=== PATIENT | female | born 1945 | race Caucasian/White ===

== ENCOUNTER 2016-11-04 09:39 | Inpatient (IN) | payer MEDICARE, MEDICAID ==
[~2016-11-04] VITALS: Ht 152.4 cm; Wt 54.9 kg
[~2016-11-04 09:39] MED LIST: ADVAIR DISK2 IN; ALBUTEROL S2.5 MG/.5 IN; ALBUTEROL SUL0.083 % IN; ALBUTEROL2.5 MG/3 M IN; AMOXICILLIN500 MG PO; AVELOX400 MG OR; LORTAB 5 OR; LORTAB 5/3255 MG PO; MEDDOSEPAK PO; MOTRIN800 MG OR; MULTIVITAMIN OR; NO CURRENT MEDS; NO MEDS; ULTRAM50 M1 PO; [UNRECOGNIZED DRUG - OTHER]; [UNRECOGNIZED DRUG - REMARK]; [UNRECOGNIZED DRUG - REMARK]
[2016-11-04] MEDS ORDERED: [UNRECOGNIZED DRUG - REMARK] PO (10:05)
[2016-11-04 10:19] LABS: HEMOGLOBIN 15.3 g/dl (12.0-16.0); IMMATURE GRANULOCYTES 0.2 % (0.0-1.0); MEAN CELL VOLUME 82.6 fL CALC (80.0-100.0); MEAN CORPUSCULAR HGB 25.3 pG CALC (26.0-32.0); MEAN CORPUSCULAR HGB CONC 30.6 g/L CALC (32.0-36.0); NEUT# 2.54 thou/uL (2.00-7.15); RED BLOOD COUNT 6.05 mill/uL (4.20-5.60); RED CELL DISTRI WIDTH 21.8 % (11.5-15.5)
[2016-11-04 10:31] LABS: ALBUMIN 3.6 g/dL (3.2-5.0); ALKALINE PHOSPHATASE 80 u/l (38-126); ANION GAP 15 (6-22 (CALC)); BILIRUBIN, TOTAL 1.1 mg/dL (0.0-1.4); BUN 11 mg/dL (8-23); BUN/CREATININE RATIO 17 (12-20 (CALC)); CALCIUM 8.7 mg/dL (8.4-10.2); CARBON DIOXIDE 26 mmol/l (22-30); CHLORIDE 97 mmol/l (95-108); CREATININE 0.6 mg/dL (0.5-1.0); GFR > 60 ML/MIN (>=60 (CALC)); GFR FOR AFR.AMER. > 60 ML/MIN (>=60 (CALC)); GLUCOSE 80 mg/dL (82-115); POTASSIUM 4.8 mmol/l (3.5-5.1); SGOT/AST 34 u/l (9-36); SGPT/ALT 21 u/l (11-66); SODIUM 134 mmol/l (137-146); TOTAL PROTEIN 8.1 g/dL (6.3-8.2)
[2016-11-04 10:34] LABS: INTERNATIONAL NORMALIZED RATIO 1.6 RATIO (0.7-1.3); PROTHROMBIN TIME 17.9 SECONDS (9.0-12.5)
[2016-11-04 10:43] LABS: MYOGLOBIN 28 ng/mL (0 - 62)
[2016-11-04] MEDS ORDERED: COUMADIN5 MG PO (11:16)
[2016-11-04 17:38] VITALS: BP 142/79
[2016-11-04 19:35] VITALS: BP 125/74
[2016-11-04 23:54] VITALS: BP 123/68
[2016-11-05 04:52] VITALS: BP 126/65
[2016-11-05 06:36] LABS: HEMATOCRIT 47.4 % (37.0-47.0); HEMOGLOBIN 14.2 g/dl (12.0-16.0); IMMATURE GRANULOCYTES 0.6 % (0.0-1.0); MEAN CELL VOLUME 83.3 fL CALC (80.0-100.0); NEUT# 2.43 thou/uL (2.00-7.15); RED BLOOD COUNT 5.69 mill/uL (4.20-5.60); RED CELL DISTRI WIDTH 21.4 % (11.5-15.5)
[2016-11-05 06:54] LABS: ANION GAP 15 (6-22 (CALC)); BUN 15 mg/dL (8-23); BUN/CREATININE RATIO 22 (12-20 (CALC)); CALCIUM 8.3 mg/dL (8.4-10.2); CARBON DIOXIDE 34 mmol/l (22-30); CHLORIDE 95 mmol/l (95-108); CREATININE 0.7 mg/dL (0.5-1.0); GFR > 60 ML/MIN (>=60 (CALC)); GFR FOR AFR.AMER. > 60 ML/MIN (>=60 (CALC)); GLUCOSE 237 mg/dL (82-115); MAGNESIUM 1.4 mg/dL (1.6-2.3); POTASSIUM 4.1 mmol/l (3.5-5.1); SODIUM 139 mmol/l (137-146)
[2016-11-05 06:58] LABS: INTERNATIONAL NORMALIZED RATIO 1.2 RATIO (0.7-1.3); PROTHROMBIN TIME 13.3 SECONDS (9.0-12.5)
[2016-11-05 08:23] VITALS: BP 115/62
[2016-11-05 13:40] VITALS: BP 119/68
[2016-11-05 15:54] VITALS: BP 127/74
[2016-11-05 19:50] VITALS: BP 126/52
[2016-11-06] VITALS: BP 128/74
[2016-11-06 04:00] VITALS: BP 133/70
[2016-11-06 07:00] LABS: HEMATOCRIT 47.2 % (37.0-47.0); HEMOGLOBIN 14.5 g/dl (12.0-16.0); IMMATURE GRANULOCYTES 0.6 % (0.0-1.0); MEAN CELL VOLUME 81.5 fL CALC (80.0-100.0); MEAN CORPUSCULAR HGB CONC 30.7 g/L CALC (32.0-36.0); NEUT# 10.87 thou/uL (2.00-7.15); RED BLOOD COUNT 5.79 mill/uL (4.20-5.60); RED CELL DISTRI WIDTH 21.5 % (11.5-15.5)
[2016-11-06 07:23] LABS: BUN 16 mg/dL (8-23); BUN/CREATININE RATIO 23 (12-20 (CALC)); CALCIUM 8.8 mg/dL (8.4-10.2); CHLORIDE 87 mmol/l (95-108); CREATININE 0.7 mg/dL (0.5-1.0); GFR > 60 ML/MIN (>=60 (CALC)); GFR FOR AFR.AMER. > 60 ML/MIN (>=60 (CALC)); GLUCOSE 114 mg/dL (82-115); POTASSIUM 3.9 mmol/l (3.5-5.1); SODIUM 140 mmol/l (137-146)
[2016-11-06 07:29] LABS: ANION GAP 16 (6-22 (CALC))
[2016-11-06 07:33] LABS: CARBON DIOXIDE 41 mmol/l (22-30)
[2016-11-06 07:37] VITALS: BP 154/57
[2016-11-06 11:30] VITALS: BP 126/61
[2016-11-06] MEDS ORDERED: LASIX 20 MG TAB20 MG PO (11:47)
[2016-11-06] MEDS ORDERED: IPRATROPIU0.5 MG/3 M NEB (11:47)
[2016-11-06] MEDS ORDERED: ZPAK PO (11:47)
[2016-11-06] MEDS ORDERED: PREDNISONE10 MG PO (11:50)
[2016-11-06 16:10] VITALS: BP 139/66
[2016-11-06] MEDS ORDERED: ALDACTONE25 MG PO (17:06)
== END 2016-11-06 17:30 | DRG 189 ==
LOC: ENPENDDIS → ED 09:39 → ED-I 12:00 → ED 13:37 → MS2 13:38
PROVIDERS: Emergency Medicine; ADMIT Internal Medicine; ATTEND Internal Medicine
DX: J96.21 Acute and chronic respiratory failure with hypoxia (principal); I27.81 Cor pulmonale (chronic); I50.9 Heart failure, unspecified; J44.1 Chronic obstructive pulmonary disease with (acute) exacerbation; F10.20 Alcohol dependence, uncomplicated; F17.210 Nicotine dependence, cigarettes, uncomplicated; M06.9 Rheumatoid arthritis, unspecified; Z99.81 Dependence on supplemental oxygen; Z86.718 Personal history of other venous thrombosis and embolism
CPT/HCPCS: Q9967

== ENCOUNTER 2017-01-01 17:17 | Inpatient (IN) | payer MEDICARE, MEDICAID ==
[2017-01-01] VITALS (7 sets, daily range): BP systolic 115–140; BP diastolic 60–77
[~2017-01-01] VITALS: Ht 167.6 cm; Wt 44.9 kg
[~2017-01-01 17:17] MED LIST changes: +ALDACTONE25 MG PO; +COUMADIN5 MG PO; +IPRATROPIU0.5 MG/3 M NEB; +LASIX 20 MG TAB20 MG PO; +PREDNISONE10 MG PO; +ZPAK PO; +[UNRECOGNIZED DRUG - REMARK] PO
--- NOTE | 2017-01-01 17:17 | NUR ---
PT TO ROOM VIA STRESS LAB NURSE
--- NOTE | 2017-01-01 17:30 | NUR ---
DR MICHELLE IN TO SEE PATIENT . 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
[2017-01-01 18:05] LABS: HEMATOCRIT 53.6 % (37.0-47.0); HEMOGLOBIN 16.8 g/dl (12.0-16.0); IMMATURE GRANULOCYTES 0.4 % (0.0-1.0); MEAN CELL VOLUME 85.5 fL CALC (80.0-100.0); MEAN CORPUSCULAR HGB 26.8 pG CALC (26.0-32.0); MEAN CORPUSCULAR HGB CONC 31.3 g/L CALC (32.0-36.0); NEUT# 9.58 thou/uL (2.00-7.15); RED BLOOD COUNT 6.27 mill/uL (4.20-5.60); RED CELL DISTRI WIDTH 24.5 % (11.5-15.5)
[2017-01-01 18:16] LABS: INTERNATIONAL NORMALIZED RATIO 1.4 RATIO (0.7-1.3); PROTHROMBIN TIME 15.3 SECONDS (9.0-12.5)
--- NOTE | 2017-01-01 18:16 | NUR ---
PATIENT RESTING AWAITING LAB AND RADIOLOGY RESULTS. PATIENT DENIES ANY PAIN OR ANY SOB OUT OF THE ORDINARY FOR HER
[2017-01-01 18:21] LABS: ALBUMIN 3.4 g/dL (3.2-5.0); BILIRUBIN, TOTAL 1.5 mg/dL (0.0-1.4); CALCIUM 8.9 mg/dL (8.4-10.2); CREATININE 3.4 mg/dL (0.5-1.0); POTASSIUM 4.8 mmol/l (3.5-5.1); TOTAL PROTEIN 7.7 g/dL (6.3-8.2)
[2017-01-01] MEDS ORDERED: DULOXETINE HCL30 MG PO (19:00)
[2017-01-01] MEDS ORDERED: DICLOFENAC SODI75 MG PO (19:01)
[2017-01-01] MEDS ORDERED: SPIRONOLACTONE25 MG PO (19:01)
[2017-01-01] MEDS ORDERED: RANITIDINE150 M1 PO (19:02)
[2017-01-01] MEDS ORDERED: METOPROL TAR25 MG PO (19:03)
--- NOTE | 2017-01-01 19:35 | NUR ---
Admission Note Report Given to: SCOTT RN Transported by: Wheelchair X Stretcher Transported with: X Nurse X Transporter X Patent IV X O2 X Oil Lease Operator PT LEFT ER IN STABLE CONDITION
--- NOTE | 2017-01-01 19:45 | NUR ---
TO ROOM 2 VIA STRETCHER BY ER NURSE. PT ALERT AND COOPERATIVE. SOILED CLOTHING BUT READILY STOOD AND ASSISTED WITH BATH-TOLERATED WELL. TO MONITOR. RHYTHM A. FLUTTER (NOT A.FIB). O2 AT 2L/MIN PER N/C. SAT 77% WITH EXERTION.
--- NOTE | 2017-01-01 20:17 | NUR ---
O2 SAT RETURNED TO 92% AT REST
--- NOTE | 2017-01-01 23:31 | NUR ---
DELANEY PLACED WITH EASE. 200ML STRAW URINE OBTAINED.
[2017-01-02] VITALS (12 sets, daily range): BP systolic 106–150; BP diastolic 55–90
[2017-01-02 00:02] LABS: URINE BILIRUBIN - DIPSTICK NEGATIVE (NEGATIVE); URINE BLOOD DIPSTICK TRACE-INTACT (NEGATIVE); URINE CLARITY TURBID; URINE COLOR YELLOW; URINE GLUCOSE - DIPSTICK NEGATIVE (NEGATIVE); URINE KETONE NEGATIVE (NEGATIVE); URINE LEUK ESTERASE NEGATIVE (NEGATIVE); URINE NITRITE - DIPSTICK NEGATIVE (Negative); URINE PH 5.5 (4.5-8.0); URINE PROTEIN - DIPSTICK 30 mg/dL (NEG-TRACE); URINE UROBILINOGEN - DIPSTICK 0.2 E.U./dL (0.2)
[2017-01-02 00:11] LABS: URINE AMORPH SEDIMENT MANY hpf (NONE-FEW); URINE BACTERIA FEW hpf; URINE HYALINE CAST MODERATE lpf (NONE-RARE); URINE MUCUS FEW hpf (NONE-FEW); URINE RBC 0-2 RBC/hpf (0-5); URINE SQUAMOUS EPITHELIAL CELL FEW EPI/hpf (0-FEW); URINE WBC 0-2 WBC/hpf (0-5)
--- NOTE | 2017-01-02 01:59 | NUR ---
RESTING QUIETLY IN BED. INITIALLY ATTEMPTIONG TO GET OUT OF BED TO URINATE. REMINDED SEVERAL TIMES OF THE DELANEY. NO LONGER ASKING FOR ASSISTANCE TO BSC- RESTING IN BED WITH NS INFUSING VIA LEFT FOREARM AT 125ML/HR RX
--- NOTE | 2017-01-02 03:08 | NUR ---
RESTING QUIETLY. GOT OUT OF BED TO BSC. REDIRECTED BACK TO BED. BED DAMP. EVAN AREA CLEANED AND IS RED. SKIN PROTECTOR APPLIED TO EVAN AREA AND RECTAL AREA
--- NOTE | 2017-01-02 04:31 | NUR ---
BEDRESTING. N/C AT THIS TIME. HEART RATE REMAINS IN 90'S- A/ FLUTTER. DENIES CHEST PAIN OR DISCOMFORT. NO COUGH NOTED
--- NOTE | 2017-01-02 05:31 | NUR ---
CARDIAC RHYTHM HAS BEEN CONSISTANT THROUGHOUT THE NIGHT- A.FLUTTER (3:1 AND 1:1). PT DENIES CHEST PAIN AND READILY BECOMES IRRITATED WHEN ASKED. SHE HAS BEEN VERY COOPERATIVE WITH STAFF BUT COVERS SELF WITH MALE STAFF.
[2017-01-02 06:25] LABS: HEMATOCRIT 52.7 % (37.0-47.0); HEMOGLOBIN 16.7 g/dl (12.0-16.0); IMMATURE GRANULOCYTES 0.5 % (0.0-1.0); MEAN CELL VOLUME 85.1 fL CALC (80.0-100.0); MEAN CORPUSCULAR HGB CONC 31.7 g/L CALC (32.0-36.0); NEUT# 6.77 thou/uL (2.00-7.15); RED BLOOD COUNT 6.19 mill/uL (4.20-5.60); RED CELL DISTRI WIDTH 24.6 % (11.5-15.5)
[2017-01-02 06:29] LABS: CHOLESTEROL HDL RATIO 9.3 (<4.4 (CALC)); CREATININE 3.2 mg/dL (0.5-1.0); POTASSIUM 4.9 mmol/l (3.5-5.1)
--- NOTE | 2017-01-02 07:02 | NUR ---
REPORT TO [place].
--- NOTE | 2017-01-02 07:15 | NUR ---
PT RESTING IN BED WITH EYES CLOSED, PT APPEARS BOTHERED WHEN ASKED TO FOLLOW COMMANDS ALLOWING NURSE TO PERFORM AM ASSESSMENT, PT DOES ALLOW, SEE INTERVENTIONS, SKIN WARM DRY AND INTACT, PT UNKEMPT LOOKING, POOR DENTATION AND DRY ORAL MUCOSA, SKIN INTACT SOME TRACE EDEMA NOTED TO BILATERAL LE, PPPB BUT WEAK, VS STABLE, IVF INFUSING AT PRESCRIBED RATE WITH TELE READING A FLUTTER WITHOUT INCIDENT, SAFETY MEASURES REINFORCED, CALL RUIZ WITHIN REACH. ENCOURAGED TO CALL FOR ANY NEEDED ASSISTANCE
--- NOTE | 2017-01-02 08:15 | NUR ---
PT RESTING IN BED WITH EYES CLOSED, NO COMPLAINTS OFFERED, CALL RUIZ WITHIN REACH, IVF CONTINUE WITHOUT INCIDENT, WILL CONTINUE TO MONITIOR
--- NOTE | 2017-01-02 09:24 | NUR ---
IN TO SEE PATIENT FOR AM ROUNDS, PLAN OF CARE DISCUSSED, WILL CONTINUE TO MONITOR.
--- NOTE | 2017-01-02 10:45 | NUR ---
PT RESTING IN BED WITH EYES CLOSED, NO S/S OF DISTRESS NOTED, SKIN WARM DRY AND INTACT,. IVF CONTINUE AT PRESCRIBED RATE. INTO SEE PATIENT EARLIER AND PLAN OF CARE DISCUSSED, PT REQUIRED FREQUENT PROMPTING TO ANSWER QUESTIONS, WILL CONTINUE TO MONITOR.
--- NOTE | 2017-01-02 11:58 | NUR ---
DIET PROVIDED, PT REMAINS SLEEPING, CALL RUIZ WITHIN REACH, WILL CONTINUE TO MONITOR.
--- NOTE | 2017-01-02 14:02 | NUR ---
PT REMAINS DOZING, NO TELE CHANGES NOTED, CALL RUIZ WITHIN REACH, IVF CONTINUE AT PRESCRIBED RATE, WILL CONTINUE TO MONITOR.
--- NOTE | 2017-01-02 16:15 | NUR ---
pt resting in bed, dozing frequently arouses to verbal stimuli, IVF continue without incident, continues to have moist, harsh TECHNICAL SOLUTIONS ENGINEER cough
--- NOTE | 2017-01-02 17:22 | NUR ---
pt awake resting in bed encouraged to increase po intake, call mcwilliams within reach, will continue to monitor
--- NOTE | 2017-01-02 18:08 | NUR ---
set up assist provided for pm meal, call mcwilliams within reach
--- NOTE | 2017-01-02 18:53 | NUR ---
REPORT RECEIVED FROM [place]. BEDRESTING. RESPIRATIONS EVEN AND NONLABORED. IV INFUSING RX. N/C AT THIS TIME. ELAINA BREWSTER
--- NOTE | 2017-01-02 22:52 | NUR ---
DRANK 2 CUPS OF COFFEE-TOLERATED WELL. DELANEY TO BSD-STRAW COLORED URINE
[2017-01-03] VITALS (12 sets, daily range): BP systolic 105–147; BP diastolic 59–83
--- NOTE | 2017-01-03 00:07 | NUR ---
BEDRESTING. RESP EVEN AND NONLABORED. DOZING AT INTERVALS
--- NOTE | 2017-01-03 01:49 | NUR ---
RESTING QUIETLY. AWAKE. DRINKING COFFEE. INTERMITTENT WET, NONPRODUCTIVE COUGH
--- NOTE | 2017-01-03 05:01 | NUR ---
Talking loudly and calling out to unseen beings. c/o roaches on the floor-was actually caps/trash. Readily redurectable. IV fluids infusing as Rx-tolerated well.
[2017-01-03 05:13] LABS: HEMATOCRIT 49.7 % (37.0-47.0); HEMOGLOBIN 15.7 g/dl (12.0-16.0); IMMATURE GRANULOCYTES 1.4 % (0.0-1.0); MEAN CELL VOLUME 85.1 fL CALC (80.0-100.0); MEAN CORPUSCULAR HGB 26.9 pG CALC (26.0-32.0); MEAN CORPUSCULAR HGB CONC 31.6 g/L CALC (32.0-36.0); NEUT# 14.3 thou/uL (2.00-7.15); RED BLOOD COUNT 5.84 mill/uL (4.20-5.60)
[2017-01-03 05:29] LABS: CALCIUM 7.8 mg/dL (8.4-10.2); CREATININE 2.6 mg/dL (0.5-1.0)
--- NOTE | 2017-01-03 07:38 | NUR ---
PATIENT IN BED WITH EYES CLOSED. PATIENT WAKES TO VOICE. ASSESSMENT COMPLETED AT THIS TIME. RESP EVEN AND UNLABORED. NO S/S OF DISTRESS NOTED. PATIENT REQUESTS COFFEE, PROVIDED AT THIS TIME. PATIENT DENIES ANY OTHER NEEDS OR PAIN. CALL LIGHT IN REACH. ENCOURAGED TO CALL FOR ANY NEEDS.
--- NOTE | 2017-01-03 09:56 | NUR ---
PATIENT IN BED. VISITOR AT BEDSIDE. RESP EVEN AND UNLABORED. NO S/S OF DISTRESS NOTED. PATIENT DENIES ANY NEEDS OR PAIN. CALL LIGHT IN REACH. ENCOURAGED TO CALL FOR ANY NEEDS.
--- NOTE | 2017-01-03 12:10 | NUR ---
PATIENT GETS UP AND GOES TO BEDSIDE COMMODE WITH OUT ASSISTANCE. HAS INCONTINENT BOWELS ON FLOOR. PATIENT GIVEN A PARTIAL BATH. LINENS CHANGED AND NEW GOWN. PATIENT ASSISTED BACK TO BED AND ASSISTED WITH SETUP OF LUNCH TRAY. PATIENT DENIES ANY NEEDS AT THIS TIME. RESP EVEN AND UNLABORED. NO S/S OF DISTRESS.
--- NOTE | 2017-01-03 14:00 | NUR ---
PATIENT IN BED WITH EYES CLOSED. RESP EVEN AND UNLABORED. NO S/S OF DISTRESS NOTED. CALL LIGHT IN REACH.
--- NOTE | 2017-01-03 16:00 | NUR ---
PATIENT IN BED WITH EYES CLOSED. RESP EVEN AND UNLABORED. NO S/S OF DISTRESS NOTED. CALL LIGHT IN REACH.
--- NOTE | 2017-01-03 18:57 | NUR ---
REPORT RECEIVED FROM SRINIVAS GIFFORD. PT EATRING (PICKING AT ) DINNER. IV OF NS INFUSING AT 80ML/HR TO LEFT FOREARM. PT STATED "THEY SAID THAT I CAN GO HOME TOMORROW". SHE KNOWS THAT SHE IS IN THE HOSPITAL BUT THOUGHT THIS WAS MORNING (NOT EVENING).
--- NOTE | 2017-01-03 21:30 | NUR ---
BEDRESTING. WATCHING TV. SPEECH CLEAR. TOOK HS MEDS AND TOLERATED WELL. NS INFUSING VIA IV SITE IN LEFT FOREARM. DENIES PAIN OR ISSUES WITH IV SITE. DELANEY TO BSC WITH DRISS URINE.
[2017-01-04] VITALS (10 sets, daily range): BP systolic 121–145; BP diastolic 70–84
--- NOTE | 2017-01-04 | NUR ---
CALLED FOR ASSISTANCE TO BATHROOM. APOLIGIZED FOR HAVING BM IN BED. ASSISTED TO BSC-GAIT STEADY. BATH GIVEN AND DRY SKIN LOTIONED. PERICARE AND CATH CARE PROVIDED (WITH ENCOURAGEMENT PERIARE REMAINS TENDER TO TOUCH) FRESH LINEN TO BED. PT RETURNED TO BED WITH STEADY GAIT. O2 REMAINS IN USE. TOLERATED ACTIVITY WELL
--- NOTE | 2017-01-04 03:59 | NUR ---
BEDRESTING. DOZING AT INTERVALS. O2 SAT DROPS INTO THE 80'S WHEN RESTING IF O2 IS REMOVED. ONCE O2 REAPPLIED, SAT RETUENS TO TJE 90'S
[2017-01-04 05:58] LABS: HEMATOCRIT 50.3 % (37.0-47.0); HEMOGLOBIN 15.8 g/dl (12.0-16.0); IMMATURE GRANULOCYTES 1.1 % (0.0-1.0); MEAN CORPUSCULAR HGB CONC 31.4 g/L CALC (32.0-36.0); NEUT# 11.27 thou/uL (2.00-7.15); RED BLOOD COUNT 5.85 mill/uL (4.20-5.60); RED CELL DISTRI WIDTH 24.7 % (11.5-15.5)
[2017-01-04 06:07] LABS: CALCIUM 7.5 mg/dL (8.4-10.2); CREATININE 1.8 mg/dL (0.5-1.0); POTASSIUM 3.6 mmol/l (3.5-5.1)
--- NOTE | 2017-01-04 07:01 | NUR ---
REPORT GIVEN TO MARITZA HO
--- NOTE | 2017-01-04 07:20 | NUR ---
PT RESTING IN BED ALERT AND OREINTED, AM ASSESSMENT COMPLETED, SEE INTERVENTIONS, SKIN WARM DRY AND INTACT, PT REMAINS UNKEMPT LOOKING, SKIN INTACT SOME TRACE EDEMA NOTED TO BILATERAL LE, PPPB BUT WEAK, VS STABLE, IVF INFUSING AT PRESCRIBED RATE WITH TELE READING A FLUTTER WITHOUT INCIDENT, SAFETY MEASURES REINFORCED, CALL RUIZ WITHIN REACH. ENCOURAGED TO CALL FOR ANY NEEDED ASSISTANCE
--- NOTE | 2017-01-04 08:00 | NUR ---
SET UP ASSIST PROVIDED EARLIER FOR AM MEAL, TOLERATING DIET WELL, CALL RUIZ WITHIN REACH, WILL CONTINUE TO MONITOR.
[2017-01-04 08:27] LABS: INTERNATIONAL NORMALIZED RATIO 1.5 RATIO (0.7-1.3); PROTHROMBIN TIME 16.7 SECONDS (9.0-12.5)
--- NOTE | 2017-01-04 09:10 | NUR ---
PT RESTING IN BED, DOZES INTERMITTENLY, IVF INFUSING ORDERED WITH GOOD ASPIRATE NOTED, TOELRAING DIET WELL, WILL CONTINUE TO MONITOR
--- NOTE | 2017-01-04 10:30 | NUR ---
PT DOZING, OOB TO BSC WITH MIN ASSIST, PT WEAK AND TIRES EASILY WITH MINIMAL EXERTION WELL SOB WITH MINIMAL EXERTION, INCONTINENT OF LOOSE MUCOUSY BM AND CONTINENT OF SMALL LOOSE MUCOUSY BM, PT PROVIDED OWN EVAN CARE, EVAN AREA DENUDED AND VERY TENDER TO TOUCH, BACK TO BED AFTER LINEN CHANGE AND GOWN CHANGED, CALL RUIZ WITHIN REACH
--- NOTE | 2017-01-04 12:00 | NUR ---
SET UP ASSIST PROVIDED FRO AFTERNOON MEAL, CALL RUIZ WITHIN REACH, NO COMPLAINTS OFFERED, WILL CONTINUE TO MONITOR.
--- NOTE | 2017-01-04 13:53 | NUR ---
PT NEFTALY INTERMITTENLY, CALL SARA MICHAELS, WILL CONTINUE TO MONITOR
--- NOTE | 2017-01-04 14:54 | NUR ---
oob to bsc with min assist, tolerated with minimal SOB, call mcwilliams within reach
--- NOTE | 2017-01-04 15:04 | NUR ---
pt continent of small loose mucousy stool, tyler care provided by self, back to bed with same assist, CALL RUIZ WITHIN REACH
--- NOTE | 2017-01-04 15:59 | NUR ---
PT RESTING IN BED, OFFERS NO NEW COMPLAINTS, CALL RUIZ WITHIN REACH, IVF CONTINUE AT PRESCRIBED RATE, WILL CONTINUE TO MONITOR.
--- NOTE | 2017-01-04 18:45 | NUR ---
assisted to bsc as per request; small loose/liquid dark brown bm noted; pt with poor pericare; insurance underwriter sales offered to assist; pt quickly declined; insurance underwriter sales instructed pt on how to properly cleanse self to prevent UTI and worsening of excoriation to perineal area; assist back to bed; will continue to [facility]
--- NOTE | 2017-01-04 19:10 | NUR ---
awake; no distress noted; pt offers no complaints; assessment completed at this time; pt alert and oriented to self, place and year/ unsure of month; denies pain; resp even and unlabored; sob noted with exertion; lungs noted with wheezing/coarse; loose cough noted; no sputum to inspect at this time; skin color wnl; o2 per nc at 2L; hr irreg; strong pulses; no edema noted; afib/aflutter on monitor; abd soft with bs present; bm noted; hernandez to gravity with sediment yellow urine; cath strap intact; #24 in lfa patent with ivf infusing at 80cc/hr; no redness or edema noted at site; redness noted to perineum; bleeding noted to right post elbow area/ pt states "i might have scratched it"; plan of care/ pm meds explained; call light within reach; will continue to monitor
--- NOTE | 2017-01-04 20:15 | NUR ---
awake; offers no complaints; po fluids provided; iv patent; afib on monitor; o2 per nc; will continue to monitor
--- NOTE | 2017-01-04 22:03 | NUR ---
awake; no distress noted; offers no complaints; iv patent; no redness or edema noted at site; afib on monitor; o2 per nc; hernandez to gravity; call light within reach; will continue to monitor
--- NOTE | 2017-01-04 23:45 | NUR ---
awake; no distress noted; pt offers no complaints; iv patent; no redness or edema noted at site; afib on monitor; o2 per nc; hernandez to gravity; call light within reach; will continue to monitor
[2017-01-05 00:01] VITALS: BP 142/80
[2017-01-05 02:00] VITALS: BP 140/79
--- NOTE | 2017-01-05 02:05 | NUR ---
resting with eyes closed; no distress noted; iv patent; no redness or edema noted at site; o2 per nc; hernandez to gravity; afib on monitor; call light within reach; will continue to monitor
--- NOTE | 2017-01-05 03:50 | NUR ---
awake; assisted to bsc; small bowel incont noted; linen changed; pericare per pt; hand hygiene encouraged; #20 started in lw x1 attempt; am labs obtained; iv flushed and patent; ivf resumed; #24 removed from lfa with catheter tip intact; pt denies needs; o2 per nc; aflutter on monitor; hernandez to gravity; call light within reach; will continue to monitor
[2017-01-05 04:00] VITALS: BP 147/83
[2017-01-05 04:39] LABS: HEMATOCRIT 55.4 % (37.0-47.0); HEMOGLOBIN 16.4 g/dl (12.0-16.0); IMMATURE GRANULOCYTES 0.5 % (0.0-1.0); MEAN CELL VOLUME 89.2 fL CALC (80.0-100.0); MEAN CORPUSCULAR HGB 26.4 pG CALC (26.0-32.0); MEAN CORPUSCULAR HGB CONC 29.6 g/L CALC (32.0-36.0); NEUT# 9.92 thou/uL (2.00-7.15); RED BLOOD COUNT 6.21 mill/uL (4.20-5.60); RED CELL DISTRI WIDTH 25.1 % (11.5-15.5)
[2017-01-05 04:55] LABS: CALCIUM 7.6 mg/dL (8.4-10.2); CREATININE 1.4 mg/dL (0.5-1.0)
[2017-01-05 04:57] LABS: POTASSIUM 4.2 mmol/l (3.5-5.1)
[2017-01-05 05:12] LABS: INTERNATIONAL NORMALIZED RATIO 2.4 RATIO (0.7-1.3); PROTHROMBIN TIME 28.5 SECONDS (9.0-12.5)
--- NOTE | 2017-01-05 05:48 | NUR ---
awake; offers no complaints; no distress noted; iv patent; aflutter on monitor; o2 per nc; hernandez to gravity; call light within reach
[2017-01-05 06:00] VITALS: BP 149/89
--- NOTE | 2017-01-05 07:25 | NUR ---
PT RESTING IN BED ALERT AND ORIENTED, AM ASSESSMENT COMPLETED, SEE INTERVENTIONS, SKIN WARM DRY AND INTACT, PT REMAINS UNKEMPT LOOKING, PER REPORT ALLOWED LINEN CHANGE BUT REFUSED BATH OR ADL CARE, SOME TRACE EDEMA NOTED TO BILATERAL LE, PPPB BUT WEAK, VS STABLE, IVF INFUSING AT PRESCRIBED RATE WITH TELE READING A FIB/FLUTTER WITHOUT INCIDENT, SAFETY MEASURES REINFORCED, CALL RUIZ WITHIN REACH. ENCOURAGED TO CALL FOR ANY NEEDED ASSISTANCE
[2017-01-05] MEDS ORDERED: COUMADIN2 MG PO (07:57)
[2017-01-05] MEDS ORDERED: LOPRESSOR25 MG PO (07:57)
[2017-01-05] MEDS ORDERED: LIPITOR20 MG PO (07:57)
[2017-01-05] MEDS ORDERED: Levaquin PO (07:58)
[2017-01-05] MEDS ORDERED: MEDDOSEPAK PO (07:58)
[2017-01-05 08:00] VITALS: BP 154/73
--- NOTE | 2017-01-05 08:15 | NUR ---
ON UNIT INFORMED OF PT SLOWLY INCREASING HR AND BP NEW ORDERS REC'D.
--- NOTE | 2017-01-05 08:30 | NUR ---
DELANEY CATHETER REMOVED INTACT WITHOUT INCIDENT PER VERBAL ORDER , PT TOLERATED W/O INCIDENT AND EDUCATED REGARDING NEED TO MEASURE FIRST POST DELANEY VOID, PT VERBALIZES UNDERSTANDING, CONTINUES TO BE PARTIALLY INCONTINENT OF LOOSE MUCOUSY DARK BROWN STOOLS, ALSO EDUCATED REGARDING THE IMPORTANCE OF GOOD HYGIENE AND EVAN CARE RELATED TO SKIN BREAKDOWN AND DISCOMFORT TO AREA RELATED TO POOR HYGIENE, PT VERBALIZES UNDERSTANDING BUT REFUSES ANY ASSISTANCE FROM STAFF WITH REGARDS TO EVAN CARE.
--- NOTE | 2017-01-05 09:10 | NUR ---
PT SOAKING HANDS FOR NAIL CARE.
--- NOTE | 2017-01-05 09:36 | NUR ---
NAIL CARE COMPLETED, AND PT BACK TO BED REPOSITIONED FRO COMFORT, IVF BOLUS COMPLETED AND RATE RETURNED TO PREVIOUS, CALL RUIZ WITHIN REACH, WILL CONTINUE TO MONITOR.
[2017-01-05 10:00] VITALS: BP 156/87
--- NOTE | 2017-01-05 11:15 | NUR ---
PT'S FRIEND HENRY CALLED FOR [facility]ASNP[facility] HOME RELATED TO D/C PER PT REQUEST, ALSO ASKED FRIEND TO BRING PT OWN PORTABLE O2 TANK WELL. VERBALIZES UNDERSTANDING,
--- NOTE | 2017-01-05 11:51 | NUR ---
SET UP ASSIST PROVIDED FOR AFTERNOONE MEAL, CALL RUIZ WITHIN REACH
--- NOTE | 2017-01-05 12:10 | NUR ---
PT CONTINENT OF LARGE LOOSE STOOL AND 250 ML DRISS URINE (1st POST DELANEY VOID) EVAN CARE PROVIDED, PT PROVIDED WITH OB PANTIES AND 2 GOWNS TO WEAR HOME PT'S CLOTHES ARE GROSSLY SOILED, EDUCATED PT AT LENGTH REGARDING D/C INSTRUCTIONS INCLUDING MEDICATION NEEDS (NEW MEDS AND HOLDING/STOPPING SOME OF CURRENT MEDS), FOLLOW UP LAB WORK AND RADIOLOGY TESTING WELL THE IMPORTANCE OF TAKING MEDICATIONS ORDERED, HAVING LAB WORK DONE AND FOLLOWING UP WITH PHYSICIANS INSTRUCTED, ALSO NOT SMOKING AND WEARING OXYGEN ORDERED, PT VERBALIZES UNDERSTANDING.
--- NOTE | 2017-01-05 12:45 | NUR ---
Discharge instructions given. Patient verbalizes understanding of same. Discharged in stable condition via Wheelchair to Home with friend. All belongings sent with pt.
== END 2017-01-05 12:45 | disposition home or self-care (01) | DRG 308 ==
LOC: ENPENDDIS → ED 17:17 → ED-I 18:32 → ED 18:57 → ICU 18:58
PROVIDERS: Emergency Medicine; Internal Medicine; ADMIT Internal Medicine; ATTEND Internal Medicine
DX: I48.1 Persistent atrial fibrillation (principal); J18.9 Pneumonia, unspecified organism; J96.21 Acute and chronic respiratory failure with hypoxia; N17.9 Acute kidney failure, unspecified; Z99.81 Dependence on supplemental oxygen; M06.9 Rheumatoid arthritis, unspecified; F03.90 Unspecified dementia, unspecified severity, without behavioral disturbance, psychotic disturbance, mood disturbance, and anxiety; E86.0 Dehydration; J44.1 Chronic obstructive pulmonary disease with (acute) exacerbation; J44.0 Chronic obstructive pulmonary disease with (acute) lower respiratory infection; M81.0 Age-related osteoporosis without current pathological fracture; F17.210 Nicotine dependence, cigarettes, uncomplicated; F10.20 Alcohol dependence, uncomplicated; I48.92 Unspecified atrial flutter; I20.8 Other forms of angina pectoris
CPT/HCPCS: A9502; J1160; J1650; J2785

== ENCOUNTER 2017-01-14 15:15 | Inpatient (IN) | payer MEDICARE, MEDICAID ==
[~2017-01-14] VITALS: Ht 157.5 cm; Wt 52.2 kg
[2017-01-14 14:45] VITALS: BP 118/57
[~2017-01-14 15:15] MED LIST changes: +COUMADIN2 MG PO; +DICLOFENAC SODI75 MG PO; +DULOXETINE HCL30 MG PO; +LIPITOR20 MG PO; +LOPRESSOR25 MG PO; +Levaquin PO; +METOPROL TAR25 MG PO; +RANITIDINE150 M1 PO; +SPIRONOLACTONE25 MG PO
[2017-01-14 18:29] LABS: HEMATOCRIT 26.4 % (37.0-47.0); HEMOGLOBIN 8.6 g/dl (12.0-16.0); MEAN CELL VOLUME 89.5 fL CALC (80.0-100.0); MEAN CORPUSCULAR HGB 29.2 pG CALC (26.0-32.0); MEAN CORPUSCULAR HGB CONC 32.6 g/L CALC (32.0-36.0); RED BLOOD COUNT 2.95 mill/uL (4.20-5.60); RED CELL DISTRI WIDTH 18.6 % (11.5-15.5)
[2017-01-14 19:20] VITALS: BP 117/59
[2017-01-15 01:30] VITALS: BP 109/66
[2017-01-15 04:50] VITALS: BP 119/96
[2017-01-15 05:51] LABS: HEMATOCRIT 24.2 % (37.0-47.0); HEMOGLOBIN 7.9 g/dl (12.0-16.0); IMMATURE GRANULOCYTES 0.7 % (0.0-1.0); MEAN CELL VOLUME 89.6 fL CALC (80.0-100.0); MEAN CORPUSCULAR HGB 29.3 pG CALC (26.0-32.0); MEAN CORPUSCULAR HGB CONC 32.6 g/L CALC (32.0-36.0); NEUT# 15.02 thou/uL (2.00-7.15); RED BLOOD COUNT 2.7 mill/uL (4.20-5.60); RED CELL DISTRI WIDTH 18.7 % (11.5-15.5)
[2017-01-15 06:17] LABS: ANION GAP 9 (6-22 (CALC)); BUN 8 mg/dL (8-23); BUN/CREATININE RATIO 14 (12-20 (CALC)); CALCIUM 6.8 mg/dL (8.4-10.2); CARBON DIOXIDE 36 mmol/l (22-30); CHLORIDE 94 mmol/l (95-108); CREATININE 0.6 mg/dL (0.5-1.0); GFR > 60 ML/MIN (>=60 (CALC)); GFR FOR AFR.AMER. > 60 ML/MIN (>=60 (CALC)); GLUCOSE 80 mg/dL (82-115); POTASSIUM 3.3 mmol/l (3.5-5.1); SODIUM 136 mmol/l (137-146)
[2017-01-15 07:28] VITALS: BP 108/56
[2017-01-15 11:01] VITALS: BP 105/59
[2017-01-15 15:02] VITALS: BP 101/61
[2017-01-16 01:00] VITALS: BP 106/55
[2017-01-16 05:36] VITALS: BP 112/61
[2017-01-16 05:58] LABS: HEMOGLOBIN 9.9 g/dl (12.0-16.0); MEAN CELL VOLUME 91.2 fL CALC (80.0-100.0); MEAN CORPUSCULAR HGB 29.1 pG CALC (26.0-32.0); MEAN CORPUSCULAR HGB CONC 31.9 g/L CALC (32.0-36.0); NEUT# 11.83 thou/uL (2.00-7.15); RED BLOOD COUNT 3.4 mill/uL (4.20-5.60); RED CELL DISTRI WIDTH 18.7 % (11.5-15.5)
[2017-01-16 06:00] LABS: ANION GAP 14 (6-22 (CALC)); BUN 19 mg/dL (8-23); BUN/CREATININE RATIO 21 (12-20 (CALC)); CALCIUM 7.8 mg/dL (8.4-10.2); CARBON DIOXIDE 32 mmol/l (22-30); CHLORIDE 95 mmol/l (95-108); CREATININE 0.9 mg/dL (0.5-1.0); GFR > 60 ML/MIN (>=60 (CALC)); GFR FOR AFR.AMER. > 60 ML/MIN (>=60 (CALC)); GLUCOSE 113 mg/dL (82-115); POTASSIUM 4.7 mmol/l (3.5-5.1); SODIUM 137 mmol/l (137-146)
[2017-01-16 07:40] VITALS: BP 109/60
[2017-01-16 11:01] LABS: URINE BILIRUBIN - DIPSTICK NEGATIVE (NEGATIVE); URINE BLOOD DIPSTICK NEGATIVE (NEGATIVE); URINE COLOR YELLOW; URINE GLUCOSE - DIPSTICK 100 mg/dL (NEGATIVE); URINE KETONE NEGATIVE (NEGATIVE); URINE LEUK ESTERASE MODERATE (Negative); URINE NITRITE - DIPSTICK NEGATIVE (Negative); URINE PH 5.5 (4.5-8.0); URINE PROTEIN - DIPSTICK NEGATIVE (NEG-TRACE); URINE SPECIFIC GRAVITY 1.015; URINE UROBILINOGEN - DIPSTICK 0.2 E.U./dL (0.2)
[2017-01-16 11:03] VITALS: BP 94/55
[2017-01-16 11:04] LABS: URINE CLARITY TURBID
[2017-01-16 11:24] LABS: URINE BACTERIA FEW hpf; URINE SQUAMOUS EPITHELIAL CELL FEW EPI/hpf (0-FEW)
[2017-01-16 11:25] LABS: URINE YEAST FEW hpf
[2017-01-16] MEDS ORDERED: PANTOPRAZOLE SO40 M1 PO (13:51)
[2017-01-16] MEDS ORDERED: IPRATROPIU0.5 MG/3 M NEB (13:51)
[2017-01-16] MEDS ORDERED: KEFLEX500 MG PO (13:59)
[2017-01-16] MEDS ORDERED: LEVAQUIN750 MG PO (13:59)
[2017-01-16] MEDS ORDERED: PREDNISONE10 MG PO (13:59)
[2017-01-16] MEDS ORDERED: FLORASTOR250 M1 PO (13:59)
[2017-01-16 15:46] VITALS: BP 95/51
== END 2017-01-16 16:34 | disposition home health service (06) | DRG 377 ==
LOC: ENPENDDIS → MS2 15:15
PROVIDERS: ADMIT Internal Medicine; ATTEND Internal Medicine
DX: K92.2 Gastrointestinal hemorrhage, unspecified (principal); J18.9 Pneumonia, unspecified organism; J96.10 Chronic respiratory failure, unspecified whether with hypoxia or hypercapnia; D68.32 Hemorrhagic disorder due to extrinsic circulating anticoagulants; N39.0 Urinary tract infection, site not specified; Z99.81 Dependence on supplemental oxygen; J44.0 Chronic obstructive pulmonary disease with (acute) lower respiratory infection; J44.1 Chronic obstructive pulmonary disease with (acute) exacerbation; I48.91 Unspecified atrial fibrillation; T45.515A Adverse effect of anticoagulants, initial encounter; F17.210 Nicotine dependence, cigarettes, uncomplicated; F10.20 Alcohol dependence, uncomplicated

== ENCOUNTER 2017-02-05 14:45 | Emergency (ER) | payer MEDICARE, MEDICAID ==
[~2017-02-05] VITALS: Ht 157.5 cm; Wt 50.0 kg
[~2017-02-05 14:45] MED LIST changes: +FLORASTOR250 M1 PO; +KEFLEX500 MG PO; +LEVAQUIN750 MG PO; +PANTOPRAZOLE SO40 M1 PO
[2017-02-05 15:27] LABS: URINE BILIRUBIN - DIPSTICK NEGATIVE (NEGATIVE); URINE BLOOD DIPSTICK TRACE-LYSED (NEGATIVE); URINE CLARITY CLEAR; URINE COLOR YELLOW; URINE GLUCOSE - DIPSTICK NEGATIVE (NEGATIVE); URINE KETONE NEGATIVE (NEGATIVE); URINE LEUK ESTERASE TRACE (NEGATIVE); URINE NITRITE - DIPSTICK NEGATIVE (Negative); URINE PROTEIN - DIPSTICK NEGATIVE (NEG-TRACE); URINE UROBILINOGEN - DIPSTICK 0.2 E.U./dL (0.2)
[2017-02-05 15:33] LABS: HEMATOCRIT 34.4 % (37.0-47.0); HEMOGLOBIN 10.6 g/dl (12.0-16.0); IMMATURE GRANULOCYTES 0.5 % (0.0-1.0); MEAN CELL VOLUME 90.8 fL CALC (80.0-100.0); MEAN CORPUSCULAR HGB CONC 30.8 g/L CALC (32.0-36.0); NEUT# 6.98 thou/uL (2.00-7.15); RED BLOOD COUNT 3.79 mill/uL (4.20-5.60); RED CELL DISTRI WIDTH 19.2 % (11.5-15.5)
[2017-02-05 15:45] LABS: ALBUMIN 3.7 g/dL (3.2-5.0); ALKALINE PHOSPHATASE 97 u/l (38-126); ANION GAP 15 (6-22 (CALC)); BILIRUBIN, TOTAL 0.8 mg/dL (0.0-1.4); BUN 14 mg/dL (8-23); BUN/CREATININE RATIO 15 (12-20 (CALC)); CALCIUM 8.1 mg/dL (8.4-10.2); CARBON DIOXIDE 33 mmol/l (22-30); CHLORIDE 93 mmol/l (95-108); CREATININE 0.9 mg/dL (0.5-1.0); GFR > 60 ML/MIN (>=60 (CALC)); GFR FOR AFR.AMER. > 60 ML/MIN (>=60 (CALC)); GLUCOSE 100 mg/dL (82-115); POTASSIUM 3.2 mmol/l (3.5-5.1); SGOT/AST 26 u/l (9-36); SGPT/ALT 38 u/l (11-66); SODIUM 138 mmol/l (137-146); TOTAL PROTEIN 6.6 g/dL (6.3-8.2)
[2017-02-05 17:55] LABS: INTERNATIONAL NORMALIZED RATIO > 10.0 RATIO (0.7-1.3); PROTHROMBIN TIME > 130.0 SECONDS (9.0-12.5)
[2017-02-05 19:04] VITALS: BP 121/67
== END 2017-02-05 19:06 | disposition short-term general hospital (02) ==
LOC: ED 14:45
PROVIDERS: Emergency Medicine
DX: T45.511A Poisoning by anticoagulants, accidental (unintentional), initial encounter (principal); K92.2 Gastrointestinal hemorrhage, unspecified; Y92.009 Unspecified place in unspecified non-institutional (private) residence as the place of occurrence of the external cause; I82.412 Acute embolism and thrombosis of left femoral vein; R94.31 Abnormal electrocardiogram [ECG] [EKG]